=== PATIENT | female | born 1940 | race Caucasian/White ===

== ENCOUNTER 2016-09-08 09:57 | Emergency (ER) | payer MEDICARE ==
[2016-09-08] MEDS ORDERED: ALBUTEROL/IPRATROPIUM 2.5/0.5 MG 3 ML/EACH DOSE ONE (10:41)
--- NOTE | 2016-09-08 10:44 | RAD ---
Exam: Two-view chest COMPARISON: None INDICATION: Cough for 5 weeks. FINDINGS: PA and lateral views the chest were obtained. Cardiac silhouette is within normal limits. Lungs are normally inflated. There is focal eventration of the right hemidiaphragm. There is no focal airspace disease or pleural effusion. Bones of the chest wall within normal limits. IMPRESSION: Negative two-view chest.
[2016-09-09 10:38] LABS: BORDETELLA PARAPERTUSSIS Negative (Negative); BORDETELLA PERTUSSIS Negative (Negative)
== END 2016-09-08 12:01 | disposition home or self-care (01) ==
LOC: ED 09:57
DX: R05 Cough (principal); R06.2 Wheezing; I10 Essential (primary) hypertension